=== PATIENT | male | born 1965 | race Caucasian/White ===

== ENCOUNTER 2022-06-16 13:12 | Outpatient (CLI) | payer OTHER, SELFPAY ==
[2022-06-16 21:52] LABS: Albumin* 4.8 g/dL (3.3-5.0); Chloride* 103 mmol/L (96-114)
[2022-06-16 21:53] LABS: Potassium* 5.2 mmol/L (3.6-5.1); Sodium* 138 mmol/L (135-149)
[2022-06-16 21:55] LABS: Alkaline Phosphatase* 108 U/L (40-150); Aspartate Amino Transferase* 23 U/L (12-35); Bilirubin Total* 1.1 mg/dL (0.1-1.5); Blood Urea Nitrogen* 20 mg/dL (7-30); Carbon Dioxide* 29 mmol/L (20-32); Cholesterol* 271 mg/dL (90-199); Creatinine* 1.3 mg/dL (0.5-1.5); Estimated Glomerular Filt Rate 64 ml/min; Glucose* 97 mg/dL (60-115); Total Protein* 7.2 g/dL (6.0-8.3)
[2022-06-16 21:56] LABS: Alanine Aminotransferase* 21 U/L (4-50); HDL Cholesterol* 87 mg/dL (>=40); LDL Cholesterol Calculated 164 mg/dL (<100); Triglycerides* 101 mg/dL (40-149)
[2022-06-16 22:22] LABS: PSA Screen* 1.44 ng/mL (0.10-4.00)
[2022-06-16 22:41] LABS: Vitamin B12* 753 pg/mL (243-894)
== END 2022-06-16 13:13 | disposition home or self-care (01) ==
PROVIDERS: PCP Family Medicine; Visit Provider Emergency Medicine
DX: Z00.00 Encounter for general adult medical examination without abnormal findings (principal); E78.5 Hyperlipidemia, unspecified; I10 Essential (primary) hypertension; Z12.5 Encounter for screening for malignant neoplasm of prostate; K21.9 Gastro-esophageal reflux disease without esophagitis
CPT/HCPCS: 80053; 80061; 82607; 84153

== ENCOUNTER 2022-12-28 12:41 | Outpatient (CLI) | payer OTHER, SELFPAY ==
--- NOTE | 2022-12-28 13:00 | CRLHL7_ITS ---
For Patients: As a result of the Century Cures Act, medical imaging exams and procedure reports are released immediately into your electronic medical record. You may view this report before your referring provider. If you have questions, please contact your health care provider. INDICATION: Disease of the pancreas. Comparison: None. TECHNIQUE: Precontrast T1 and T2 weighted imaging; T2 haste imaging; diffusion weighted imaging; in and out of phase imaging; postcontrast imaging; 20 cc of Dotarem contrast was injected. FINDINGS: A 1.7 x 1.5 cm cystic lesion head of the pancreas with high signal on the precontrast T2 haste imaging and low signal on the precontrast T1 weighted imaging. No enhancement after intravenous injection of contrast. No evidence of pancreatic ductal dilatation. No focal hepatic or splenic pathology. Multiple simple hepatic cysts. Gallbladder is unremarkable. Small cortical cyst both kidneys. No adrenal pathology. No retroperitoneal lymphadenopathy. IMPRESSION: 1. 1.7 x 1.5 cm cyst head of the pancreas; rule out side branch IPMN; suggest obtaining a followup MRCP and MRI of the abdomen in 12 months duration. 2. Several simple hepatic cysts and small cortical cyst both kidneys. Dictated by Nichole Ray MD @ 12/29/2022 1:55:03 PM (Electronically Signed)
== END 2022-12-28 12:42 | disposition home or self-care (01) ==
LOC: MRI 12:44
PROVIDERS: PCP Family Medicine; Visit Provider Family Medicine
DX: K86.89 Other specified diseases of pancreas (principal); K76.89 Other specified diseases of liver
CPT/HCPCS: 74183; A9575

== ENCOUNTER 2023-08-13 13:09 | Outpatient (CLI) | payer OTHER, SELFPAY | END 2023-08-13 13:10 | disposition home or self-care (01) | PROVIDERS: PCP Family Medicine; Visit Provider Family Medicine | DX: Z00.00 Encounter for general adult medical examination without abnormal findings (principal); E78.5 Hyperlipidemia, unspecified; I10 Essential (primary) hypertension; Z12.5 Encounter for screening for malignant neoplasm of prostate | CPT/HCPCS: 80053; 80061; G0103 ==

== ENCOUNTER 2023-12-08 10:07 | Outpatient (CLI) | payer OTHER, SELFPAY | END 2023-12-08 10:08 | disposition home or self-care (01) | LOC: NFLDREF 12-12 15:15 | PROVIDERS: PCP Family Medicine; Referring Provider Family Medicine; Visit Provider Family Medicine | DX: E78.5 Hyperlipidemia, unspecified (principal) | CPT/HCPCS: 80061 ==

== ENCOUNTER 2024-01-12 08:30 | Outpatient (CLI) | payer OTHER, SELFPAY ==
--- NOTE | 2024-01-12 08:45 | CRLHL7_ITS ---
For Patients: As a result of the Century Cures Act, medical imaging exams and procedure reports are released immediately into your electronic medical record. You may view this report before your referring provider. If you have questions, please contact your health care provider. INDICATION: Pancreatic cyst. COMPARISON: Abdominal MRI dated 28 December 2022. TECHNIQUE: Abdominal MRI with T1 in- and out of phase, T2, diffusion weighted, and progressively delayed post-contrast images. Intravenous gadolinium administered. FINDINGS: No fatty infiltration of the liver. A few lobulated cysts in the liver with the largest located in segment 5 measuring 2.0 cm. No other focal abnormalities identified in the visualized portions of the liver, spleen, adrenal glands, and kidneys. No hydronephrosis. No adenopathy. The lobulated septated 1.8 x 1.5 cm cyst extending posteriorly off the head of the pancreas is unchanged. The pancreas is otherwise unremarkable. No bile duct dilation. Normal size of the main pancreatic duct. IMPRESSION: 1. 1.8 cm cyst extending off the head of the pancreas is unchanged. Recommend follow-up MRI in 1 year to continue documentation of stability. Management of Incidental Pancreatic Cysts: A White Paper of the ACR Incidental Findings Committee. Journal of the [employer]. Volume 14, Number 7, January 2017, pages 911-92. Dictated by Missael Gonzalez MD @ 01/14/2024 12:13:38 PM (Electronically Signed)
--- NOTE | 2024-01-12 10:15 | CRLHL7_ITS ---
For Patients: As a result of the 21st Century Cures Act, medical imaging exams and procedure reports are released immediately into your electronic medical record. You may view this report before your referring provider. If you have questions, please contact your health care provider. EXAM: MRI OF THE RIGHT SHOULDER WITHOUT AND WITH IV CONTRAST CLINICAL INDICATION: Right shoulder pain. Abnormal x-ray. COMPARISON PLAIN FILMS: 01/10/2024. COMPARISON CROSS-SECTIONAL IMAGING STUDIES: None available at time of interpretation. TECHNICAL: Axial, sagittal oblique and coronal oblique T1, PD, PD FS and T2-weighted images. Shoulder surface coil. FINDINGS: ROTATOR CUFF TENDONS AND MUSCLES AND DELTOID: Supraspinatus: No tendinosis, tendon tearing, muscle atrophy or muscle edema. Infraspinatus: No tendinosis, tendon tearing, muscle atrophy or muscle edema. Subscapularis: No tendinosis, tendon tearing, muscle atrophy or muscle edema. Teres Minor: No tendinosis, tendon tearing, muscle atrophy or muscle edema. Deltoid: No muscle atrophy or edema. BURSA: Subacromial-subdeltoid: No abnormal bursal edema, thickening or bursal fluid. BICEPS TENDON, LONG HEAD: Tendinopathy and partial-thickness tearing of the long head of the biceps tendon at the genu and biceps labral anchor complex. No medial subluxation. CORACOACROMIAL ARCH: Acromial Morphology: Type 2 acromial morphology. Mild lateral downsloping of the acromion. No significant subacromial spur. No os acromiale. Acromiohumeral Interval: Normal. Coracohumeral Interval: Normal. ACROMIOCLAVICULAR JOINT REGION: AC Joint: Prominent arthropathy of the acromioclavicular joint with inferior marginal osteophytes. Ligaments: The coracoclavicular ligaments are intact. GLENOHUMERAL JOINT: Joint space: Small glenohumeral joint effusion with mild synovitis. No loose body. Humeral Head Articular Cartilage: Full-thickness chondromalacia in the central and superior humeral head with mild subchondral edema. Prominent hypertrophic changes account for the radiographic abnormality. Glenoid Articular Cartilage: Full-thickness chondromalacia centrally and posteriorly with prominent hypertrophic changes anteriorly. Remodeling of the inferior posterior margin of the glenoid. Labrum: Diffuse tearing and degeneration. Alignment: Maintained. Capsule: No capsular edema or abnormal capsular thickening. OSSEOUS STRUCTURES: No osteochondroma or worrisome osseous lesion. OTHER FINDINGS: There is no abnormality within the suprascapular or spinoglenoid notches nor within the quadrilateral space. No axillary adenopathy or mass. IMPRESSION: 1. Advanced glenohumeral osteoarthritis with prominent osteophytes in the humeral head and glenoid. 2. Diffuse labral tear and degeneration. 3. Partial-thickness tear and tendinopathy of the long head of the biceps tendon. 4. Prominent arthropathy of the acromioclavicular joint. 5. Mild lateral downsloping of the acromion. 6. The rotator cuff is intact. Dictated by Porter Quiñonez MD @ 01/13/2024 8:23:34 AM (Electronically Signed)
== END 2024-01-12 08:31 | disposition home or self-care (01) ==
PROVIDERS: PCP Family Medicine; Visit Provider Family Medicine
DX: K86.2 Cyst of pancreas (principal); K86.89 Other specified diseases of pancreas; M25.511 Pain in right shoulder; M19.011 Primary osteoarthritis, right shoulder; S43.491A Other sprain of right shoulder joint, initial encounter
CPT/HCPCS: 73223; 74183; A9575

== ENCOUNTER 2024-03-13 09:56 | Outpatient (CLI) | payer OTHER, SELFPAY | END 2024-03-13 09:57 | disposition home or self-care (01) | LOC: NFLDREF 03-17 15:33 | PROVIDERS: PCP Family Medicine; Referring Provider Family Medicine; Visit Provider Family Medicine | DX: E78.5 Hyperlipidemia, unspecified (principal) | CPT/HCPCS: 80061; 80076 ==

== ENCOUNTER 2024-10-27 14:36 | Outpatient (CLI) | payer OTHER, SELFPAY | END 2024-10-27 14:37 | disposition home or self-care (01) | PROVIDERS: PCP Family Medicine; Visit Provider Family Medicine | DX: Z00.01 Encounter for general adult medical examination with abnormal findings (principal); E78.5 Hyperlipidemia, unspecified; I10 Essential (primary) hypertension; Z11.59 Encounter for screening for other viral diseases; Z12.5 Encounter for screening for malignant neoplasm of prostate | CPT/HCPCS: 80053; 80061; 86803; G0103 ==

== ENCOUNTER 2025-04-30 10:04 | Outpatient (CLI) | payer OTHER, SELFPAY | END 2025-04-30 10:05 | disposition home or self-care (01) | LOC: LKVREF 10:06 | PROVIDERS: PCP Family Medicine; Visit Provider Family Medicine | DX: E78.5 Hyperlipidemia, unspecified (principal); I10 Essential (primary) hypertension | CPT/HCPCS: 80053; 80061 ==